=== PATIENT | male | born 1955 | race Caucasian/White ===

== ENCOUNTER → 2022-06-12 07:48 | Outpatient (CLI) | payer MEDICARE, OTHER, SELFPAY ==
--- NOTE | 2022-06-12 | DI.ECHO.S_ITS ---
[place] [facility]---------+ [facility] +---------+ : : [address] : : : : [id number] : : : : Phone: [phone]---------+ Echocardiogram Report + + :Name: ELEANOR ROONEY Study Date: 06/12/2022 Height: 74 in : :[facility] ReadingLocation: Weight: 205 lb : : Gender: Male BSA: 2.2 m2 : :: 1955 Age: 67 yrs BP: 149/101 mmHg: :Reason For Study: Murmur : :Ordering Physician: ASHLEY, : :ALEXANDER Performed By: Johnny Zavaleta : :Referring: ALEXANDER RAMIREZ : + + Interpretation Summary The left ventricle is normal in size and wall thickness. The ejection fraction is estimated to be 55-60%. There are no focal wall motion abnormalities. Diastolic parameters suggest a relaxation abnormality of the left ventricle, consistent with probable normal filling pressures. The right ventricle is normal in size and function. The right ventricular systolic pressure is estimated to be at least 25 mmHg based on an estimated right atrial pressure of 3 mm Hg. Both atria are normal in size. There is mild mitral regurgitation. The mitral regurgitant jet is eccentrically directed. There is no other significant valvular heart disease. The ascending aorta is mildly enlarged. Procedure: A two-dimensional transthoracic echocardiogram with color flow and Doppler was performed. The study quality was technically adequate. There is no prior echocardiogram noted for this patient. The patient was in normal sinus rhythm during the exam. Left Ventricle: The left ventricle is normal in size and wall thickness. Left ventricular systolic function is normal. The ejection fraction is estimated to be 55-60%. There are no focal wall motion abnormalities. Diastolic parameters suggest a relaxation abnormality of the left ventricle, consistent with probable normal filling pressures. Right Ventricle: The right ventricle is normal in size and function. Atria: Both atria are normal in size. The interatrial septum grossly appears intact with no obvious evidence for an atrial septal defect. Mitral Valve: The mitral valve is normal in structure and function. There is mild mitral regurgitation. The mitral regurgitant jet is eccentrically directed. Aortic Valve: The aortic valve is normal in structure and function. There is trace aortic regurgitation. Tricuspid Valve: The tricuspid valve is normal in structure and function. There is mild tricuspid regurgitation. The right ventricular systolic pressure is estimated to be at least 25 mmHg based on an estimated right atrial pressure of 3 mm Hg. Pulmonic Valve: The pulmonic valve is not well visualized. There is no other significant valvular heart disease. Great Vessels: The aortic root is normal size. The ascending aorta is mildly enlarged. The IVC is of normal diameter and collapses greater than 50% with a sniff. This suggests a low right atrial pressure of 3 mm Hg. Pericardium/ Pleura There is no pericardial effusion. There is no pleural effusion. MMode/2D Measurements & Calculations LVIDd: 5.2 cm LVOT diam: 2.5 cm LVIDs: 3.5 cm Ao root diam: 3.7 cm FS: 32.7 % asc Aorta Diam: 4.1 cm IVSd: 1.0 cm LVPWd: 0.80 cm LV page. diameter/BSA (cm/m^2): 2.4 LV sys. diameter/BSA (cm/m^2): 1.6 LA dimension: 4.5 cm RA long axis: 5.1 cm LA A2 area: 18.6 cm2 LA A4 area: 16.4 cm2 LA length (vol): 4.6 cm LA vol: 55.9 ml LA vol index: 25.5 ml/m2 TAPSE_phl: 1.9 cm Doppler Measurements & Calculations Ao V2 max: 86.1 cm/sec LVOT Max Bernard: 84.9 cm/sec Ao V2 mean: 63.2 cm/sec LV V1 max P.9 mmHg Ao max P.0 mmHg LV V1 VTI: 17.6 cm Ao mean P.0 mmHg FREYA(I,D): 4.7 cm2 Ao V2 VTI: 18.5 cm FREYA(V,D): 4.8 cm2 sev ratio: 0.95 FREYA indexed to BSA (cm^2/m^2): 2.1 MV E max bernard: 60.8 cm/sec TR max bernard: 236.0 cm/sec MV A max bernard: 81.0 cm/sec TR max P.3 mmHg MV E/A: 0.75 Med Peak E' Bernard: 6.5 cm/sec E/E' med: 9.4 Lat Peak E' Bernard: 8.1 cm/sec E/E' lat: 7.5 E/e' average: 8.4 MV dec time: 0.27 sec SV(LVOT): 86.4 ml AV VR_phl: 0.99 FREYA(VTI)/BSA_phl: 2.1 MV P1/2t-pr_phl: 80.0 msec Reading Physician:06:03 PM
== END ==
PROVIDERS: PCP Internal Medicine; Referring Provider Internal Medicine; Visit Provider Internal Medicine
DX: R01.1 Cardiac murmur, unspecified (principal); I77.89 Other specified disorders of arteries and arterioles; I08.1 Rheumatic disorders of both mitral and tricuspid valves
CPT/HCPCS: 93306